=== PATIENT | female | born 1995 | race Caucasian/White ===

== ENCOUNTER 2017-02-13 18:54 | Observation (INO) | payer OTHER ==
--- NOTE | 2017-02-13 20:01 | ED ---
Abdominal Pain HPI - General Chief Complaint: Abdominal Pain Stated Complaint: Abd Pain Time Seen by Provider: 02/13/17 19:30 Source: patient, EMS Mode of arrival: EMS Limitations: no limitations - History of Present Illness Initial Comments: 21-year-old female patient presents to emergency department today as a transfer from [facility]. She presented to [place] for sudden onset left lower quadrant abdominal pain. Patient states that the pain was severe, cramping and throbbing in nature. She states that nothing she did make the pain better. She states that movement did not make the pain any worse. States that she is very tender in the lower abdomen and that the pain radiates around to her left lower back. She denies ever having pain similar to this before. She states that she did have her routine Pap and pelvic exam 1-2 weeks ago, she was told that she did have some swelling however it wasn't specific and she was not having pain at that time. She states that she has vomited multiple times since the pain started. She denies any hematemesis. Patient denies any abnormal vaginal bleeding, vaginal discharge, hematuria, dysuria, urinary frequency, urinary urgency, constipation, diarrhea, fever, chills, rash, dizziness, weakness, numbness, or tingling. No history of . Results at [facility] did show a white blood cell count of 15.4, with a neutrophil count of 13.97. Urinalysis was negative for any acute process, test was negative. They did perform a CT of the abdomen and pelvis which did show a 10.6 cm pelvic mass, with moderate pelvic free fluid. The physician there felt she needed an ultrasound, which they do not have at their facility so she transferred her here for further evaluation. Currently patient is resting comfortably on the bed. She reports a pain score of 2 out of 10 on the scale. States that she did receive a couple different pain medications at the other hospital which did help her. - Related Data Home Medications Medication Instructions Recorded Confirmed Multivitamins, Thera [Multivitamin 1 tab PO DAILY 02/13/17 02/13/17 (formulary)] Allergies Allergy/AdvReac Type Severity Reaction Status Date / Time cetirizine HCl [From Zyrtec] Allergy Rash/Hives/ Verified 02/13/17 19:15 Swelling Review of Systems ROS Statement: Those systems with pertinent positive or pertinent negative responses have been documented in the HPI. ROS Other: All systems not noted in ROS Statement are negative. Past Medical History Past Medical History: No Reported History History of Any Multi-Drug Resistant Organisms: None Reported Past Surgical History: No Surgical Hx Reported Past Psychological History: No Psychological Hx Reported Smoking Status: Never smoker Past Alcohol Use History: None Reported, Occasional Past Drug Use History: None Reported - Past Family History Mother Family Medical History: Hypertension Additional Family Medical History / Comment(s): and migraines General Exam Limitations: no limitations General appearance: alert, in no apparent distress, other (Well-developed, well- nourished adult female in no acute distress. Vital signs upon presentation were temperature 99.3, pulse 108, respirations 18, blood pressure 125/69, pulse ox 100% on room air.) Respiratory exam: Present: normal lung sounds bilaterally. Absent: respiratory distress, wheezes, rales, rhonchi, stridor Cardiovascular Exam: Present: regular rate, normal rhythm, normal heart sounds. Absent: systolic murmur, diastolic murmur, rubs, gallop, clicks GI/Abdominal exam: Present: soft, tenderness (Left lower quadrant and right lower quadrant tenderness. Mild discomfort with suprapubic palpation.), normal bowel sounds. Absent: distended, guarding, rebound, rigid Back exam: Present: normal inspection. Absent: tenderness, CVA tenderness (R), CVA tenderness (L) Neurological exam: Present: alert, oriented X3, CN II-XII intact Psychiatric exam: Present: normal affect, normal mood Skin exam: Present: warm, dry, intact, normal color. Absent: rash Course Vital Signs 02/13/17 02/13/17 19:00 22:36 Temperature 99.3 F 97.0 F L Pulse Rate 108 H 85 Respiratory 18 16 Rate Blood Pressure 125/69 109/76 O2 Sat by Pulse 100 99 Oximetry Medical Decision Making - Medical Decision Making 21-year-old female patient was transferred from [facility] for evaluation of pelvic pain, and visualization of a 10 cm pelvic mass on computed tomography scan. Ultrasound was performed here and did show a 10 x 10 x 7 cm pelvic mass in the right adnexa. My attending Dr. Matthews did speak to Dr. Sepulveda the BILINGUAL CASE MANAGER on-call, he agreed to admit patient for further evaluation. Patient was ordered a pain and nausea medication to keep her comfortable. She'll be made nothing by mouth at midnight. Did discuss plan with the patient and her parents they verbalize understanding and agree with this plan. - Radiology Data Radiology results: report reviewed, image reviewed Transabdominal ultrasound of the pelvis was performed. Report reviewed in its entirety. Impression by shows a 10 x 10 x 7 cm vascularized right adnexal soft tissue mass, appearing to be distinct from the right ovary and the uterus, but further characterization with MRI without and with contrast is recommended. I will make a note that there was also free fluid seen laterally to the mass, they're unable to determine the origin. Evaluation of the right ovary states it is unremarkable as seen on the cement images. Left ovary was within normal limits as visualized, though the view was suboptimal due to bowel gas. Disposition Clinical Impression: Pelvic mass, Pelvic pain Disposition: ADMITTED IP TO THIS [facility] Condition: Good Decision to Admit Reason: Admit from EC Decision Date: 02/13/17 Decision Time: 22:25
--- NOTE | 2017-02-13 21:46 | US ---
EXAMINATION TYPE: US pelvic complete DATE OF EXAM: 02/13/2017 COMPARISON: CT [facility] 02/13/2017 CLINICAL HISTORY: Pain. Patient states getting a CT done at outside hospital showing a 10 cm right pe lvic mass. Patient states having left sided pain today. TECHNIQUE: Transabdominal (TA) Date of LMP: 02/10/2017, G0 EXAM MEASUREMENTS: Uterus: 6.7 x 4.0 x 2.9 cm Endometrial Stripe: 0.3 cm Right Ovary: 2.9 x 1.8 x 1.5 cm Left Ovary: 2.5 x 1.3 x 1.1 cm 1. Uterus: Anteverted wnl 2. Endometrium: wnl 3. Right Ovary: Unremarkable as seen on the submitted images. 4. Left Ovary: wnl as visualized, suboptimal due to bowel gas Spectral, color and waveform doppler imaging shows good arterial and venous flow within the ovaries ; there is no evidence for ovarian torsion. 5. Bilateral Adnexa: Right adnexal solid mildly heterogeneous hypoechoic soft tissue mass with vascu lar flow = 9.8 x 10.1 x 6.8 cm. Free fluid seen laterally to mass. Unable to determine origin. 6. Posterior cul-de-sac: No free fluid IMPRESSION: 10 x 10 x 7 cm vascularized right adnexal soft tissue mass, appearing to be distinct from the right ovary and the uterus - but further characterization with MRI without and with contrast is recommended.
[2017-02-13] MEDS ORDERED: NALOXONE 0.4 MG/ML 1 ML VIAL IV PRN (22:25)
[2017-02-13] MEDS ORDERED: HYDROmorphone 1 MG/ML 1 ML SYRINGE IV PRN (22:25)
[2017-02-13] MEDS ORDERED: HYDROmorphone 2 MG TAB PO PRN (22:25)
[2017-02-13] MEDS ORDERED: ACETAMINOPHEN TAB 500 MG TAB PO STA (22:28)
[2017-02-13] MEDS ORDERED: ONDANSETRON 4 MG/2 ML VIAL IVP PRN (22:28)
[2017-02-13 23:20] VITALS: BMI 21.7
[2017-02-14 07:49] LABS: Basophils % (A) 0 %; CH 29.4; Eosinophils # (A) 0.1 k/uL (0-0.7); Eosinophils % (A) 1 %; HDW 2.27; HGB 13.4 gm/dL (11.4-16.0); Luc # (Auto) 0.16; Luc % (Auto) 2; Lymphocytes % (A) 14 %; MCH 29.3 pg (25.0-35.0); MCHC 32.7 g/dL (31.0-37.0); MCV 89.4 fL (80.0-100.0); Mean Platelet Volume 7.6; Monocytes # (A) 0.4 k/uL (0-1.0); Monocytes % (A) 6 %; Neutrophils # (A) 5.5 k/uL (1.3-7.7); Neutrophils % (A) 76 %; RBC 4.59 m/uL (3.80-5.40); RDW 11.8 % (11.5-15.5); WBC 7.2 k/uL (3.8-10.6); WBC (Perox) 7.71
[2017-02-14 08:00] LABS: Anion Gap 8 mmol/L; Blood Urea Nitrogen 6 mg/dL (7-17); Calcium 8.6 mg/dL (8.4-10.2); Carbon Dioxide 25 mmol/L (22-30); Chloride 105 mmol/L (98-107); Glucose 91 mg/dL (74-99); Non-African American GFR(MDRD) >60 (>60 ml/min/1.73 sqM); Sodium 138 mmol/L (137-145)
[2017-02-14] MEDS ORDERED: diphenhydrAMINE 25 MG CAP PO PRN (09:07)
[2017-02-14] MEDS ORDERED: ACETAMINOPHEN TAB 500 MG TAB PO PRN (09:16)
--- NOTE | 2017-02-14 09:55 | P.GSCN ---
History of Present Illness Consult date: 02/14/17 Reason for Consult: Abdominal mass History of present illness: Patient went to [place] with the complaints of left-sided abdominal pain. The pain was radiating down the left side into the leg even. No nausea or vomiting. Normal bowel habits. No fevers. She had a CAT scan showing a questionable mass in the pelvis. An ultrasound was then performed which showed a 10 cm mass that per gynecology seems most consistent with a hemorrhagic cyst. We were asked to see this patient for her pain and mass. No history of similar events in the past. No rectal bleeding or melena. No prior pelvic surgeries. Left-sided pain has since almost resolved. White blood cell count and hemoglobin both stable. Review of Systems The patient denies any acute changes in vision or hearing, no dysphagia or odynophagia, no chest pain or shortness of breath, no dysuria or hematuria, no headache, no runny nose, no rectal bleeding or melena, no unexplained weight loss Past Medical History Past Medical History: No Reported History History of Any Multi-Drug Resistant Organisms: None Reported Past Surgical History: No Surgical Hx Reported Past Psychological History: No Psychological Hx Reported Smoking Status: Never smoker Past Alcohol Use History: None Reported, Occasional Past Drug Use History: None Reported - Past Family History Mother Family Medical History: Hypertension Additional Family Medical History / Comment(s): and migraines Medications and Allergies Home Medications Medication Instructions Recorded Confirmed Type Multivitamins, Thera [Multivitamin 1 tab PO DAILY 02/13/17 02/13/17 History (formulary)] Allergies Allergy/AdvReac Type Severity Reaction Status Date / Time [facility] Allergy Rash/Hives/ Verified 02/13/17 19:15 Swelling Surgical - Exam Vital Signs Temp Pulse Resp BP Pulse Ox 99.3 F 108 H 18 125/69 100 02/13/17 19:00 02/13/17 19:00 02/13/17 19:00 02/13/17 19:00 02/13/17 19:00 Physical exam: General: Well-developed, well-nourished HEENT: Normocephalic, sclerae nonicteric Abdomen: Nontender, nondistended, no palpable masses Extremities: No edema Neuro: Alert and oriented Results - Labs 02/14/17 07:23 02/14/17 07:23 Abnormal Lab Results - Last 24 Hours (Table) 02/14/17 Range/Units 07:23 BUN 6 L (7-17) mg/dL Diabetes panel 02/14/17 Range/Units 07:23 Sodium 138 (137-145) mmol/L Potassium 4.0 (3.5-5.1) mmol/L Chloride 105 (98-107) mmol/L Carbon Dioxide 25 (22-30) mmol/L BUN 6 L (7-17) mg/dL Creatinine 0.64 (0.52-1.04) mg/dL Glucose 91 (74-99) mg/dL Calcium 8.6 (8.4-10.2) mg/dL Calcium panel 02/14/17 Range/Units 07:23 Calcium 8.6 (8.4-10.2) mg/dL Pituitary panel 02/14/17 Range/Units 07:23 Sodium 138 (137-145) mmol/L Potassium 4.0 (3.5-5.1) mmol/L Chloride 105 (98-107) mmol/L Carbon Dioxide 25 (22-30) mmol/L BUN 6 L (7-17) mg/dL Creatinine 0.64 (0.52-1.04) mg/dL Glucose 91 (74-99) mg/dL Calcium 8.6 (8.4-10.2) mg/dL Adrenal panel 02/14/17 Range/Units 07:23 Sodium 138 (137-145) mmol/L Potassium 4.0 (3.5-5.1) mmol/L Chloride 105 (98-107) mmol/L Carbon Dioxide 25 (22-30) mmol/L BUN 6 L (7-17) mg/dL Creatinine 0.64 (0.52-1.04) mg/dL Glucose 91 (74-99) mg/dL Calcium 8.6 (8.4-10.2) mg/dL Assessment and Plan (1) Abdominal pain Narrative/Plan: Patient seems to be doing better from a symptomatic standpoint. The findings of this pelvic mass are being addressed by gynecology at this point. We'll defer to them regarding further workup necessary. We'll follow with you. Status: Acute
[2017-02-14 09:59] VITALS: RESP 16
--- NOTE | 2017-02-14 10:43 | P.HPOB ---
History of Present Illness H&P Date: 02/14/17 Chief Complaint: Nausea and vomiting, abdominal pain The patient is a 21-year-old 0 para 0 who was admitted through the emergency room after presenting with a history of significant nausea and vomiting beginning yesterday at approximately noon causing her to leave work. The nausea and vomiting continued through the evening with left-sided pain in her flank and lower abdomen. She presented to the emergency room at [facility] was transferred to [facility]'s emergency room at which time she underwent pelvic ultrasound which demonstrated a left pelvic and presumptive ovarian mass of approximately 10 cm in largest dimension. Review of the films demonstrates it to be consistent with a hemorrhagic cyst. The patient is well known to our office having been seen on a regular basis for annual examinations and was actually seen last week. After analgesics in the emergency room and admission for observation, the patient reports that her pain and nausea and vomiting have resolved. She feels quite hungry. She denies any further nausea and vomiting, there is no diarrhea. She has had no fever nor any other localizing symptoms. She reports menstrual periods are typically very regular, roughly 28 days apart, and with minimal dysmenorrhea or other menstrual concerns. She is sexually active and not using contraception as she is considering . Obstetrical history: 0 para 0 currently not using contraception as she is considering . Gynecologic history: Unremarkable with no history of any infections to include STDs. Review of Systems Review of systems is confined to history of present illness. Past Medical History Past Medical History: No Reported History History of Any Multi-Drug Resistant Organisms: None Reported Past Surgical History: No Surgical Hx Reported Past Psychological History: No Psychological Hx Reported Smoking Status: Never smoker Past Alcohol Use History: None Reported, Occasional Past Drug Use History: None Reported - Past Family History Mother Family Medical History: Hypertension Additional Family Medical History / Comment(s): and migraines Medications and Allergies Home Medications Medication Instructions Recorded Confirmed Type Multivitamins, Thera [Multivitamin 1 tab PO DAILY 02/13/17 02/13/17 History (formulary)] Allergies Allergy/AdvReac Type Severity Reaction Status Date / Time cetirizine HCl [From Zyrtec] Allergy Rash/Hives/ Verified 02/13/17 19:15 Swelling Exam - Vital Signs Vital signs: Vital Signs Temp Pulse Pulse Resp BP BP Pulse Ox 02/14/17 08:15 97.8 F 88 16 111/65 98 02/13/17 23:30 88 20 02/13/17 23:01 98.1 F 88 20 115/69 98 02/13/17 22:36 97.0 F L 85 16 109/76 99 02/13/17 19:00 99.3 F 108 H 18 125/69 100 Intake and Output 02/13/17 02/14/17 02/14/17 22:59 06:59 14:59 Other: # Voids 1 Weight 55.338 kg 55.8 kg In general, this is a well-developed, well-nourished white female in no acute distress. Her heart has a regular rhythm and rate without murmur. Her lungs are clear to auscultation bilaterally in all dowell. Her abdomen is nondistended, has normal active bowel sounds, is soft, nontender, and without any palpable masses, hepatosplenomegaly, or hernias. Her extremities are without any cyanosis, clubbing, or edema and are nontender to palpation bilaterally. Bimanual pelvic examination demonstrates normal external genitalia and BUS with normal vaginal mucosa and cervix to palpation. There is no cervical motion tenderness. The uterus is approximately 4 weeks in size, retroverted, mobile, nontender, normal in shape. The left adnexa is normal without any apparent masses or tenderness. The right adnexa demonstrates a fullness or mass above the level of the uterus fairly high in the pelvis consistent with the 10 cm mass documented by ultrasound. It is firm, nontender , though does not feel particularly mobile. Results Result Diagrams: 02/14/17 07:23 02/14/17 07:23 Abnormal Lab Results - Last 24 Hours (Table) 02/14/17 Range/Units 07:23 BUN 6 L (7-17) mg/dL Assessment and Plan (1) Pelvic mass Status: Acute (2) Abdominal pain Status: Acute Plan: Given her symptoms and presentation of nausea and vomiting and left-sided pain, it is possible that the right ovarian mass is an incidental finding and her symptoms were created by viral gastroenteritis. In either case, all symptoms have resolved. The mass is causing no symptomatology at this time and appears to be consistent with a hemorrhagic ovarian cyst. Given its lack of symptomatology and despite its relatively large size, I feel it can be observed and followed up in the outpatient setting where further decisions can be made as to its disposition whether to attempt to allow it to resolve spontaneously or to remove it surgically. The patient does not have a surgical abdomen at this time and is, in my estimation, in no danger at this time. As result, we will advance her diet and Hep-Lock her IV. Should she tolerate a regular diet, she will be discharged home to follow-up in the office in approximately 4 days for repeat ultrasound and appointment with either myself or her primary caregiver in our office, Dr. Ojeda. The findings and plan were discussed at length with the patient and her parents were all in agreement with the plan as outlined.
--- NOTE | 2017-02-14 10:46 | P.DS ---
Providers Date of admission: 02/13/17 22:21 Expected date of discharge: 02/14/17 Attending physician: [facility] Sepulveda Consults: 02/14/17 09:04 Consult Physician Routine Consulting Provider: Quoc Singleton Consult Reason/Comments: mass Do you want consulting provider notified?: Yes 02/14/17 09:17 Consult Physician Routine Consulting Provider: Shine Shetty Reason/Comments: medical Do you want consulting provider notified?: Already Contacted Primary care physician: Shine Shetty - Discharge Diagnosis(es) (1) Pelvic mass Current Visit: Yes Status: Acute (2) Abdominal pain Current Visit: Yes Status: Acute Hospital Course: The patient is a 21-year-old 0 para 0 admitted to the emergency room with acute nausea and vomiting and left-sided pain beginning yesterday at approximately noon. She was ultimately seen through our emergency room where a pelvic ultrasound was performed at which time a right pelvic mass was discovered approximate 10 cm in largest dimension. Review of the films is consistent with the possibility of a hemorrhagic ovarian cyst. This could be of new or onset or could represent an endometrioma but is unlikely to be the cause of her left-sided pain and nausea which has resolved at this time. As result of her observation overnight, all symptoms have resolved and we have deemed her stable for discharge on hospital day #2. She is therefore discharged home to follow-up in the office in approximate 4 days for repeat ultrasound and exam as well as further disposition regarding the right pelvic mass. Instructions were to call for any significantly increased pain or other symptoms of concern. She is also to remain relatively at rest over the next several days until follow-up. I recommended that she abstain from intercourse until further disposition is made. She understood all of her instructions and agrees to follow up as noted above. Discharge medications included a prescription for Tylenol 3, 1-2 by mouth every 6 hours when necessary pain, #30 dispensed with no refills. She was instructed to favor nonsteroidal anti- inflammatories and used to Tylenol 3 only for more significant pain. Vital signs have remained stable and the patient is afebrile. Procedures: #1. 23 hour observation #2. Pelvic ultrasound #3. IV hydration Patient Condition at Discharge: Stable Plan - Discharge Summary New Discharge Prescriptions: No Action Multivitamins, Thera [Multivitamin (formulary)] 1 tab PO DAILY Discharge Medication List Multivitamins, Thera [Multivitamin (formulary)] 1 tab PO DAILY 02/13/17 [History ] Follow up Appointment(s)/Referral(s): Shine Shetty MD [Primary Care Provider] - 1-2 days
[2017-02-14 11:47] VITALS: BP 91/68; PULSE 82; TEMP 96.9
== END 2017-02-14 13:05 | disposition home or self-care (01) ==
LOC: EC 18:54 → 6PED 22:21
PROVIDERS: ADMIT Obstetrics & Gynecology; ATTEND Obstetrics & Gynecology
DX: R19.00 Intra-abdominal and pelvic swelling, mass and lump, unspecified site (principal); R10.2 Pelvic and perineal pain; R11.2 Nausea with vomiting, unspecified; Z88.8 Allergy status to other drugs, medicaments and biological substances; Z82.49 Family history of ischemic heart disease and other diseases of the circulatory system; R10.32 Left lower quadrant pain
CPT/HCPCS: 76856; 80048; 85025; 93975; 99285

== ENCOUNTER 2017-02-23 06:46 | Observation (INO) | payer OTHER ==
[2017-02-18 10:54] VITALS: BMI 21.4
[~2017-02-23 06:46] MED LIST: DEXAMETHASONE SOD PHOSPHATE 10 MG/ML 1 ML VIAL IV ONE; HYDROmorphone 0.5 MG/0.5 ML SYRINGE IVP PRN; MIDAZOLAM 2 MG/2 ML VIAL IV PRN; ONDANSETRON 4 MG/2 ML VIAL IVP ONE; SCOPOLAMINE 1.5MG/72HR PATCH TRANSDERM ONE
[2017-02-23] MEDS: LACTATED RINGERS 1,000 ML IV SCH ×3 (07:47→22:03)
[2017-02-23] MEDS ORDERED: LIDOCAINE 1% 20 ML VIAL (10MG/ML) FOR IV START INTRADERMA ONE (07:47)
[2017-02-23] MEDS ORDERED: ceFAZolin 2 GM in SODIUM CHLORIDE 0.9% 100 ML IVPB ONE (08:01)
[2017-02-23] MEDS: ceFAZolin 2 GM in SODIUM CHLORIDE 0.9% 100 ML IVPB ONE ×2 (08:22→08:38)
[2017-02-23] MEDS ORDERED: LACTATED RINGERS 1,000 ML IV ONE (09:01)
[2017-02-23] MEDS ORDERED: CELLULOSE,OXIDIZED 1 EACH EACH MISCELLANE ONE (09:02)
[2017-02-23] MEDS ORDERED: NALBUPHINE 10 MG/ML AMPUL IV PRN (09:13)
[2017-02-23] MEDS ORDERED: MORPHINE SULFATE 4 MG/ML SYRINGE IVP PRN (09:13)
[2017-02-23] MEDS ORDERED: NALOXONE 0.4 MG/ML 1 ML VIAL IV PRN (09:13)
[2017-02-23] MEDS ORDERED: ONDANSETRON 4 MG/2 ML VIAL IVP PRN (09:13)
[2017-02-23] MEDS ORDERED: fentaNYL (PF) 50 MCG/ML 2 ML AMP ONE (09:22)
[2017-02-23] MEDS ORDERED: ePHEDrine SULFATE/0.9% NACL/PF 50 MG/5 ML SYRINGE IV ONE (09:22)
[2017-02-23] MEDS ORDERED: PROPOFOL 10 MG/ML 20 ML VIAL IV ONE (09:22)
[2017-02-23] MEDS ORDERED: SUCCINYLCHOLINE CHLORIDE 100 MG/5 ML SYR IV ONE (09:22)
[2017-02-23] MEDS ORDERED: MIDAZOLAM 2 MG/2 ML VIAL ONE (09:22)
[2017-02-23] MEDS ORDERED: PHENYLEPHRINE-0.9% NACL SYG 1 MG/10 ML SYRINGE ONE (09:22)
--- NOTE | 2017-02-23 09:24 | P.OP ---
Date of Procedure: 02/23/17 Preoperative Diagnosis: Pelvic mass Postoperative Diagnosis: Left ovarian mass Procedure(s) Performed: Exploratory laparotomy, Left oophorectomy Anesthesia: GETA, spinal Estimated Blood Loss (ml): 15 IV fluids (ml): 850 Urine output (ml): 30 Pathology: other (Left ovary) Condition: stable Disposition: PACU Operative Findings: 10 x 11 cm solid irregularly-shaped mass involving entire left ovary. No normal left ovarian tissue. Normal-appearing left fallopian tube, right fallopian tube, right ovary, uterus. Description of Procedure: After the patient and her family were met in the preoperative holding area and all questions were answered, she was taken to the operating room where a Duramorph spinal was placed. She was then placed under general anesthetic without incident. She was positioned, prepped and draped in the dorsal supine position with a Jacobs catheter in place. Low transverse skin incision was made and carried down to the underlying fascia sharply and with the electrocautery. The fascia was incised in the midline and extended bilaterally with the Marvin scissors. The rectus muscles were in the midline and the peritoneum was identified and tented up with hemostats. The peritoneum was carefully entered with Metzenbaum scissors. The peritoneal incision was extended inferiorly and superiorly with good visualization the bladder. Pelvic washings were taken at this time. The pelvis was explored and a solid ovarian mass from the left side was properly. This was elevated out of the incision without difficulty. There are no significant adhesions noted. After inspection was felt as though the mass in the left ovary was unusual in that left ear vitrectomy was warranted as opposed to attempted cystectomy. Demario clamps were then utilized to completely transect the tubo-ovarian pedicle. The specimen was then amputated. 2-0 Vicryl sutures utilized to doubly suture ligate the pedicle. An additional [id number] suture was placed on the tubo -ovarian pedicle for hemostasis. The left fallopian tube was not involved and appeared grossly normal. The right fallopian tube and right ovary were inspected and appeared small and grossly normal. The uterus was small and the posterior cul-de-sac was free of any lesions or adhesions. The ovarian specimen was sent for frozen section for preliminary diagnostic purposes. Interceed was placed over the surgical site for adhesion prevention. The rest the abdomen was explored and no palpable lymphadenopathy or other abnormalities were palpable. Rectus muscles, peritoneal edges and fascial edges were inspected and noted to be hemostatic. The fascia was then closed in a running fashion with 0 Vicryl suture. The subcu tissues copiously suction irrigated and reapproximated with 2-0 Vicryl. The skin was closed in a subcutaneous fashion with 4-0 Vicryl suture. All counts reported to me as correct by the operating room staff and the patient was awoken from anesthetic and transported recovery area in stable condition.
[2017-02-23] MEDS ORDERED: diphenhydrAMINE 50 MG/ML 1 ML VIAL IVP ONE (09:49)
[2017-02-23] MEDS ORDERED: Acetaminophen-Codeine 300-30mg TAB PO PRN ×2 (10:31)
[2017-02-23] MEDS ORDERED: METOCLOPRAMIDE 5 MG/ML 2 ML VIAL IVP PRN (10:31)
[2017-02-23] MEDS ORDERED: SIMETHICONE 80 MG CHEWABLE PO PRN (10:31)
[2017-02-23] MEDS ORDERED: diphenhydrAMINE 50 MG/ML 1 ML VIAL IVP PRN (10:31)
[2017-02-23] MEDS ORDERED: IBUPROFEN 600 MG TAB PO PRN (10:31)
[2017-02-23] MEDS: KETOROLAC 30 MG/ML 1 ML VIAL IVP PRN ×2 (11:06→21:09)
[2017-02-23] MEDS: SENNOSIDES-DOCUSATE SODIUM 1 EACH TAB PO SCH (21:57)
[2017-02-24] MEDS: KETOROLAC 30 MG/ML 1 ML VIAL IVP PRN (04:11)
--- NOTE | 2017-02-24 06:20 | P.PN ---
Progress Note - Text Date: 02/24/2017 Time: 06 The patient is status post, exploratory laparotomy Vital signs stable VAS: 0-10 Patient has no complaints of pain. The patient incurred some minimal itching yesterday, this itching is now subsiding. Pain meds to be managed by service.
[2017-02-24 07:30] LABS: Basophils % (A) 0 %; CHCM 32.2; Eosinophils # (A) 0.1 k/uL (0-0.7); Eosinophils % (A) 1 %; HCT 33.7 % (34.0-46.0); HDW 2.28; Luc # (Auto) 0.16; Luc % (Auto) 2; Lymphocytes # (A) 1.4 k/uL (1.0-4.8); Lymphocytes % (A) 16 %; MCH 29.9 pg (25.0-35.0); MCHC 33.1 g/dL (31.0-37.0); MCV 90.4 fL (80.0-100.0); Mean Platelet Volume 7.6; Monocytes # (A) 0.6 k/uL (0-1.0); Monocytes % (A) 7 %; Neutrophils # (A) 6.8 k/uL (1.3-7.7); Neutrophils % (A) 75 %; RBC 3.72 m/uL (3.80-5.40); RDW 11.8 % (11.5-15.5); WBC 9.1 k/uL (3.8-10.6); WBC (Perox) 9.08
[2017-02-24 07:37] LABS: HGB 11.1 gm/dL (11.4-16.0)
[2017-02-24] MEDS: LACTATED RINGERS 1,000 ML IV SCH (08:03)
[2017-02-24] MEDS: SENNOSIDES-DOCUSATE SODIUM 1 EACH TAB PO SCH (08:04)
--- NOTE | 2017-02-24 08:29 | P.DS ---
Providers Date of admission: 02/24/17 00:32 Expected date of discharge: 02/24/17 Attending physician: Nu Ojeda Primary care physician: Shine Shetty - Discharge Diagnosis(es) (1) Dysgerminoma of left ovary Current Visit: Yes Status: Acute (2) Pelvic mass Current Visit: No Status: Acute Hospital Course: This is a 21 year old 0 young woman who was found to have an approximately 10 cm pelvic mass consistent with possible dermoid cyst. She was admitted on 03-10 and went to the operating room where she underwent an exploratory laparotomy and left oophorectomy for findings of an approximately 10 x 12 cm solid left ovarian mass. Please see the operative report for details. 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 Final pathology is still pending. The patient's postoperative course was unremarkable. By the evening of postoperative day 0 the Jacobs catheter was removed and she was able to urinate without difficulty. She was tolerating a general diet. She is able to ambulate in the hallway without difficulty. Her pain is well-controlled with oral pain medications. Her incision appears well healing without evidence of disruption or erythema. Lengthy discussion has been had with the patient and her family members regarding the diagnosis. Arrangements have been made for referral to [facility] oncologist on 03/02/2017. We have discussed possible scenarios for further treatment and all questions have been answered to the best of my abilities. She was counseled as to postsurgical discharge instructions. Procedures: Exploratory laparotomy with left nephrectomy Patient Condition at Discharge: Good Plan - Discharge Summary New Discharge Prescriptions: New Ibuprofen 800 mg PO Q8HR PRN #30 tablet PRN Reason: Pain No Action Multivitamins, Thera [Multivitamin (formulary)] 1 tab PO DAILY Discharge Medication List Multivitamins, Thera [Multivitamin (formulary)] 1 tab PO DAILY 02/13/17 [History ] Ibuprofen 800 mg PO Q8HR PRN #30 tablet 02/24/17 [Rx] Follow up Appointment(s)/Referral(s): Jamia Stone MD [REFERRING] - 03/02/17 Nu Ojeda MD [STAFF PHYSICIAN] - 2 Weeks Activity/Diet/Wound Care/Special Instructions: Follow-up in the office in 6 to weeks post operatively. May use over-the- counter Tylenol extra strength every 6-8 hours as needed for pain, alternating with ibuprofen 800 mg every 8 hours as needed for pain. Call the office with any concerning signs or symptoms including fever greater than 100.5, redness or foul drainage from the incision, severe pain not controlled by oral pain medications. No vigorous activity or heavy lifting 2 weeks or until seen in follow-up in the office. Discharge Disposition: HOME SELF-CARE
[2017-02-24] MEDS ORDERED: ACETAMINOPHEN TAB 325 MG TAB PO PRN (12:00)
[2017-02-24 12:19] VITALS: BP 107/72; PULSE 69; RESP 12; TEMP 97.1
--- NOTE | 2017-03-11 18:47 | CDI ---
Documentation Clarification OP Dear Dr Ojeda, The description of the procedure is Exploratory Laparotomy with Left Oophorectomy, however, on the discharge sumamary under Procedures: it states the patient had Exploratory Laparotomy with Left Nephrectomy. Please clarify the procedure performed by dictating an addendum to your discharge summary. Thank you for your assistance, Miladys Garvey If you have any questions, please contact Contract Implementation Analyst Nilda Zavala at [phone] [facility]
== END 2017-02-24 14:14 | disposition home or self-care (01) ==
LOC: OR 06:46 → 6PED 09:31 → OR 02-24 00:32 → 6PED 02-24 00:32
PROVIDERS: ADMIT Obstetrics & Gynecology; ATTEND Obstetrics & Gynecology
DX: C56.2 Malignant neoplasm of left ovary (principal); Z88.8 Allergy status to other drugs, medicaments and biological substances
CPT/HCPCS: 58661; 81025; 86900; 86901; 88305; 85025; 86850; 88342; 88331; 88307; 86788; 88341; G0378; J2250; J1200; J1100; J0690; J2405; J3010; J1885 ×2; J2370; J0330; J2704

== ENCOUNTER 2020-10-25 | Outpatient (CLI) | payer BC ==
--- NOTE | 2020-10-30 08:52 | P.MSEPDOC ---
Presenting Problems - Arrival Data Date of Arrival on Unit: 10/25/20 Time of Arrival on Unit: 14:56 Mode of Transport: Ambulatory - Complaint OB-Reason for Admission/Chief Complaint: Rule Out SROM Comment: pt presents to triage for leaking fluid at 1230, possible ROM Medical History - Information : 1 Para: 0 Term: 0 : 0 Abortions: Spontaneous or Elective: 0 Number of Living Children: 0 - Gestational Age Gestational Age by ALESIA (wks/days): 36 Weeks and 4 Days Review of Systems - Review of Systems Constitutional: No problems Breast: No problems ENT: No problems Cardiovascular: No problems Respiratory: No problems Gastrointestinal: No problems Genitourinary: No problems Musculoskeletal: No problems Neurological: No problems Skin: No problems Vital Signs - Temperature Temperature: 97.5 F Temperature Source: Temporal Artery Scan - Pulse Right Brachial Pulse Rate: 90 Pulse Assessment Method: Automatic Cuff - Respirations Respiratory Rate: 17 Oxygen Delivery Method: Room Air O2 Sat by Pulse Oximetry: 99 - Blood Pressure Right Arm Blood Pressure: 117/74 Blood Pressure Mean: 88 Blood Pressure Source: Automatic Cuff Medical Screen Scoring - Assessment - Baby A Baseline FHR: 130 Physician Notification - Physician Notified Physician Notified Date: 10/25/20 Physician Notified Time: 16:05 Physician: Nu Ojeda Order Received: Yes - Notification Comment Comment: amniosure negative, reactive nst, orders for discharge and follow up next week at scheduled appt Disposition - Disposition OB Disposition: Triage, Discharge to home, Written follow up instructions reviewed Discharge Date: 10/25/20 Discharge Time: 16:10 I agree with the RN Medical Screening Exam: Yes Case reviewed; plan agreed upon as documented in EMR&OBIX.: Yes Diagnosis: False labor
== END 2020-10-25 16:10 | disposition home or self-care (01) ==
CPT/HCPCS: 59025; 84112; 99213

== ENCOUNTER 2020-11-10 06:05 | Inpatient (IN) | payer BC, OTHER ==
[2020-11-10] MEDS ORDERED: CARBOPROST TROMETHAMINE 250 MCG/ML 1 ML AMP IM PRN (06:27)
[2020-11-10] MEDS ORDERED: OXYTOCIN 10 UNIT/ML 1 ML VIAL IM PRN (06:27)
[2020-11-10] MEDS ORDERED: LIDOCAINE 0.5% (PF) 5 MG/ML (50 ML SDV) SQ PRN (06:27)
[2020-11-10] MEDS ORDERED: METHYLERGONOVINE 0.2 MG/ML 1 ML AMP IM PRN (06:27)
[2020-11-10] MEDS ORDERED: TERBUTALINE 1 MG/ML VIAL SQ PRN (06:27)
[2020-11-10] MEDS ORDERED: LACTATED RINGERS 1,000 ML IV SCH (06:30)
[2020-11-10 06:46] LABS: Basophils % (A) 0 %; Eosinophils # (A) 0.1 k/uL (0-0.7); Eosinophils % (A) 1 %; HCT 35.8 % (34.0-46.0); HGB 11.8 gm/dL (11.4-16.0); Lymphocytes # (A) 1.7 k/uL (1.0-4.8); Lymphocytes % (A) 15 %; MCH 26.9 pg (25.0-35.0); MCHC 32.9 g/dL (31.0-37.0); MCV 81.7 fL (80.0-100.0); Mean Platelet Volume 9.1; Monocytes # (A) 0.5 k/uL (0-1.0); Monocytes % (A) 5 %; Neutrophils # (A) 8.7 k/uL (1.3-7.7); Neutrophils % (A) 77 %; Platelet Count 162 k/uL (150-450); RBC 4.38 m/uL (3.80-5.40); RDW 12.9 % (11.5-15.5); WBC 11.3 k/uL (3.8-10.6)
--- NOTE | 2020-11-10 07:35 | P.HPOB ---
History of Present Illness H&P Date: 11/10/20 Chief Complaint: 38-5/7 weeks, spontaneous rupture, active labor The patient is a 25-year-old 1 para 0 admitted at 38-5/7 weeks by IVF dating parameters. She is admitted in active labor with documented spontaneous rupture of membranes and the category 1 heart rate tracing. Her has been uncomplicated but was achieved with in vitro fertilization. She carries a history of a diagnosis of a malignant dysgerminoma requiring a left oophorectomy. Group B strep status is negative. Obstetrical history: 1 para 0 with current statistics listed in history present illness. EDC of 11/22/2020 was established by last menstrual period and in vitro fertilization dating parameters and confirmed by ultrasound. Laboratory workup demonstrates a blood type of A+ with rubella status immune. The remainder of laboratory workup was within normal limits. One hour Glucola was initially elevated and followed up with a normal three-hour glucose tolerance test. Group B strep status is negative. Gynecologic history: Unremarkable as regards infections however she did have the aforementioned history of malignant dysgerminoma requiring removal of one ovary. Review of Systems Review of systems is confined to history of present illness. Past Medical History Past Medical History: No Reported History Additional Past Medical History / Comment(s): left ovrian cyst History of Any Multi-Drug Resistant Organisms: None Reported Past Surgical History: No Surgical Hx Reported Additional Past Surgical History / Comment(s): oral surgery, fallopian tube surg Past Anesthesia/Blood Transfusion Reactions: No Reported Reaction Past Psychological History: No Psychological Hx Reported Smoking Status: Never smoker Past Alcohol Use History: Occasional Past Drug Use History: None Reported - Past Family History Mother Family Medical History: No Reported History Additional Family Medical History / Comment(s): . Medications and Allergies Home Medications Medication Instructions Recorded Confirmed Type Pnv No.95/Ferrous Fum/Folic AC 1 each PO DAILY 10/25/20 11/10/20 History [ Multivitamin Tablet] Allergies Allergy/AdvReac Type Severity Reaction Status Date / Time amoxicillin Allergy Rash/Hives Verified 11/10/20 06:10 cetirizine HCl [From Zyrtec] Allergy Rash/Hives/ Verified 11/10/20 06:10 Swelling Exam Vital Signs Temp Pulse Resp BP Pulse Ox 11/10/20 06:26 96.4 F L 75 18 120/76 98 11/10/20 06:07 96.4 F L 75 18 120/76 98 Intake and Output 11/09/20 11/10/20 11/10/20 22:59 06:59 14:59 Other: Weight 73.482 kg In general, this is a well-developed, well-nourished white female in discomfort as she is nearing delivery. Her heart has a regular rhythm and rate without murmur. Her lungs are clear to auscultation bilaterally in all dowell. Her abdomen is gravid, nondistended, has normal active bowel sounds, soft, nontender, and without any palpable masses aside from the uterine fundus. Her extremities without any cyanosis, clubbing, or significant edema. Digital cervical this time denser to surgery completely dilated, with the vertex in presentation at approximately 0 to +1 station. Spontaneous rupture of membranes has been documented. Fluid is clear. Results Result Diagrams: 11/10/20 06:35 Abnormal Lab Results - Last 24 Hours (Table) 11/10/20 Range/Units 06:35 WBC 11.3 H (3.8-10.6) k/uL Neutrophils # 8.7 H (1.3-7.7) k/uL Assessment and Plan (1) Spontaneous rupture of amniotic membranes Current Visit: Yes Status: Acute Code(s): [id number] - SNOMED Code(s): 816248175 (2) Active labor at term Current Visit: Yes Status: Acute Code(s): PFR8949 - SNOMED Code(s): 92648357 Plan: Continue close maternal and surveillance. I would anticipate normal vagi nal delivery in the near future.
[2020-11-10] MEDS ORDERED: HYDROCORTISONE 2.5% RECTAL CREAM 30 GM TUBE RECTAL PRN (09:00)
[2020-11-10] MEDS ORDERED: HYDROcodone/APAP 5-325MG 1 EACH TAB PO PRN (09:00)
[2020-11-10] MEDS ORDERED: ACETAMINOPHEN TAB 325 MG TAB PO PRN (09:00)
[2020-11-10] MEDS ORDERED: BENZOCAINE/MENTHOL SPRAY 1 GM/SPRAY AEROSOL TOPICAL PRN (09:00)
[2020-11-10] MEDS ORDERED: HYDROcodone/APAP 7.5-325MG 1 EACH TAB PO PRN (09:00)
[2020-11-10] MEDS ORDERED: diphenhydrAMINE 50 MG CAP PO PRN (09:00)
[2020-11-10] MEDS ORDERED: diphenhydrAMINE 25 MG CAP PO PRN (09:00)
[2020-11-10] MEDS ORDERED: LANOLIN CREAM 5 GM TUBE TOPICAL PRN (09:00)
[2020-11-10] MEDS ORDERED: ZOLPIDEM 5 MG TAB PO PRN (09:00)
[2020-11-10] MEDS ORDERED: SIMETHICONE 80 MG CHEWABLE PO PRN (09:00)
[2020-11-10] MEDS ORDERED: diphenhydrAMINE 50 MG/ML 1 ML VIAL IVP PRN ×2 (09:00)
[2020-11-10] MEDS ORDERED: OXYTOCIN 30 UNITS/500 ML NS 30 UNIT in SALINE 1 500ML.BAG IV SCH (09:00)
--- NOTE | 2020-11-10 09:04 | P.PROBDLV ---
Vaginal Delivery Note - . Vaginal Delivery Note: The patient is a 25-year-old 1 para 0 admitted at 38-4/7 weeks by good dating parameters perches admitted in early active labor with all signs reassuring having had spontaneous rupture of membranes at home for clear fluid. Her has been uncomplicated and group B strep status is negative. The was achieved with in vitro fertilization and she carries a history of a previous nephrectomy for discovery of a malignant dysgerminoma. On labor and delivery, she made fairly rapid progress through the active phase of labor to complete and then pushed over the course of 1 hour to a normal spontaneous vaginal delivery of a viable 7 lbs. 12 oz. baby boy with Apgars of 9 at 1 minute and 9 at 5 minutes delivered in the right occiput anterior position. There was a nuchal cord times to which was loose and reduced while the head was on the perineum. Remainder of the infant was delivered onto the field and the cord doubly clamped and cut after approximately 45 seconds of weight time. The placenta was delivered spontaneously, intact, and grossly normal with a grossly normal three-vessel cord inserted approximate 1-27 m from the margin of the placental disc. There was a first-degree right labial laceration just lateral of the clitoral rapp as well as a second-degree midline perineal laceration. Both were repaired with 3-0 chromic catgut without difficulty. Estimated blood loss for the case was approximate 200 mL. There were no complications. All sponge, instrument, and needle counts were correct. Both mother and are resting comfortably in recovery.
[2020-11-10 11:06] VITALS: RESP 16
[2020-11-10] MEDS: IBUPROFEN 600 MG TAB PO SCH ×3 (12:04→21:32)
[2020-11-10] MEDS: SENNOSIDES-DOCUSATE SODIUM 1 EACH TAB PO SCH (19:21)
[2020-11-11] MEDS: IBUPROFEN 600 MG TAB PO SCH (04:06)
[2020-11-11 04:36] LABS: Basophils % (A) 0 %; Eosinophils # (A) 0.1 k/uL (0-0.7); Eosinophils % (A) 1 %; HCT 27.7 % (34.0-46.0); Lymphocytes # (A) 1.8 k/uL (1.0-4.8); Lymphocytes % (A) 13 %; MCH 28.3 pg (25.0-35.0); MCHC 34.9 g/dL (31.0-37.0); Mean Platelet Volume 10.2; Monocytes # (A) 0.8 k/uL (0-1.0); Monocytes % (A) 6 %; Neutrophils # (A) 11.1 k/uL (1.3-7.7); Neutrophils % (A) 78 %; Platelet Count 158 k/uL (150-450); RBC 3.42 m/uL (3.80-5.40); RDW 12.5 % (11.5-15.5); WBC 14.2 k/uL (3.8-10.6)
[2020-11-11 04:48] LABS: HGB 9.7 gm/dL (11.4-16.0)
[2020-11-11] MEDS: SENNOSIDES-DOCUSATE SODIUM 1 EACH TAB PO SCH (08:34)
[2020-11-11 09:01] VITALS: BP 106/74; PULSE 90; TEMP 98.9
--- NOTE | 2020-11-11 11:04 | P.DS ---
Providers Date of admission: 11/10/20 06:17 Expected date of discharge: 11/11/20 Attending physician: Nu Ojdea Primary care physician: Sam Sepulveda - Discharge Diagnosis(es) (1) Spontaneous rupture of amniotic membranes Current Visit: Yes Status: Acute (2) Active labor at term Current Visit: Yes Status: Acute (3) Normal spontaneous vaginal delivery Current Visit: Yes Status: Acute Hospital Course: The patient is a 25-year-old 1 para 0 admitted at 38-4/7 weeks by good dating parameters. She is admitted in active labor with all signs reassuring and documented spontaneous rupture of membranes. Her has been uncomplicated and group B strep status is negative. On labor and delivery, she declined epidural analgesia and progressed fairly rapidly through the active phase of labor to complete where after she pushed to a normal spontaneous vaginal delivery of a viable 7 lbs. 12 oz. baby boy with Apgars of 9 at 1 minute and 9 at 5 minutes. Her course was unremarkable vital signs remaining stable and her temperature was afebrile throughout. She was deemed stable for discharge on day #1 and was discharged to follow-up in the office in 6 weeks' time routinely. Discharge instructions included calling for any significantly increased bleeding or foul-smelling lochia, significantly increased fever abdominal pain, perineal complaints, breast complaints, or anyth ing else that concerned her. She is additionally instructed to have nothing in the vagina for at least 6 weeks time to include intercourse. She understood her instructions and agrees to follow up as noted above. Discharge medications included continued vitamins as she has opted to breast-feed. She was otherwise to use [id number] analgesic pain medications as needed. Maternal blood type is A+ and rubella status is immune. Procedures: #1. Normal spontaneous vaginal delivery #2. Repair of perineal and labial laceration Patient Condition at Discharge: Stable Plan - Discharge Summary New Discharge Prescriptions: No Action Pnv No.95/Ferrous Fum/Folic AC [ Multivitamin Tablet] 1 each PO DAILY Discharge Medication List Pnv No.95/Ferrous Fum/Folic AC [ Multivitamin Tablet] 1 each PO DAILY 10/25/20 [History] Follow up Appointment(s)/Referral(s): Nu Ojeda MD [STAFF PHYSICIAN] - 6 Weeks Discharge Disposition: HOME SELF-CARE
== END 2020-11-11 15:52 | disposition home or self-care (01) | DRG 807 ==
LOC: FBPOP 06:05 → 4FBP 06:17
PROVIDERS: ADMIT Obstetrics & Gynecology; ATTEND Obstetrics & Gynecology
PROC: 10E0XZZ Delivery of Products of Conception, External Approach (ICD-10-PCS; principal; 2020-11-10)
PROC: 0KQM0ZZ Repair Perineum Muscle, Open Approach (ICD-10-PCS; 2020-11-10)
DX: O70.1 Second degree perineal laceration during delivery (principal); Z37.0 Single live birth; Z3A.38 38 weeks gestation of pregnancy; Z90.5 Acquired absence of kidney; Z90.721 Acquired absence of ovaries, unilateral
CPT/HCPCS: 59025; 84112; 85025; 86850; 86900; 86901; 99213